=== PATIENT | female | born 2000 | race Caucasian/White ===

== ENCOUNTER 2024-07-20 12:08 | Emergency (ER) | payer SELFPAY ==
[2024-07-20] MEDS: Ondansetron 4 MG Tab.DIS PO ONE (13:08)
== END 2024-07-20 14:41 | disposition home or self-care (01) ==
LOC: JD.ED 12:08
DX: J06.9 Acute upper respiratory infection, unspecified (principal); B97.89 Other viral agents as the cause of diseases classified elsewhere; R11.2 Nausea with vomiting, unspecified
CPT/HCPCS: 87428; 99283; A9270

== ENCOUNTER 2024-09-29 13:56 | Emergency (ER) | payer SELFPAY | END 2024-09-29 14:20 | disposition left against medical advice (07) | LOC: JD.ED 13:56 | DX: Z53.21 Procedure and treatment not carried out due to patient leaving prior to being seen by health care provider (principal) ==

== ENCOUNTER 2024-09-29 20:18 | Emergency (ER) | payer SELFPAY ==
[2024-09-29] MEDS: Acetaminophen 325 MG Tab PO ONE (20:48)
[2024-09-29] MEDS: Amoxicillin 500 MG Cap PO ONE (20:48)
[2024-09-29] MEDS: Ketorolac 60 MG/2 ML SDV IM ONE (20:49)
== END 2024-09-29 21:06 | disposition home or self-care (01) ==
LOC: JD.ED 20:18
DX: K02.9 Dental caries, unspecified (principal); Z79.899 Other long term (current) drug therapy
CPT/HCPCS: 96372; 99282; A9270; J1885